=== PATIENT | male | born 1955 | race Caucasian/White ===

== ENCOUNTER 2023-07-29 10:40 | Day surgery (SDC) | payer MEDICARE, OTHER ==
[2023-07-27 15:10] VITALS: BMI 28.1
[~2023-07-29 10:40] MED LIST: LACTATED RINGERS 1,000 ML IV SCH
[2023-07-29] MEDS: LACTATED RINGERS 1,000 ML IV SCH (11:28)
--- NOTE | 2023-07-29 11:34 | CT ---
EXAMINATION TYPE: CT chest wo con DATE OF EXAM: 07/29/2023 COMPARISON: PET/CT on 05/29/2023. HISTORY: Bronchoscopy guidance. CT DLP: 529 mGycm. Automated Exposure Control for Dose Reduction was Utilized. TECHNIQUE: CT scan of the thorax is performed without IV contrast. FINDINGS: Mediastinum and Lillie: There is no axillary, mediastinal or hilar lymphadenopathy. Pleural and Pericardial spaces: There are no pleural or pericardial effusions. Upper Abdomen: There is a 6.1 cm stone within the upper pole of the right kidney. Visualized upper ab domen otherwise appears unremarkable. Cardiovascular: There is moderate vascular calcification throughout the thoracic aorta without eviden ce of aneurysmal dilation. There are severe diffuse coronary artery calcifications. Lung Parenchyma and Airways: 1.2 cm nodular density within the right upper lobe on series 4 image 131 with an additional nodular density more peripherally just adjacent to this region measuring 4.7 cm o n series 4 image 139. 4.9 mm nodule in the left lower lobe on series 4 image 270. 2.9 mm left lower l obe nodule on series 4 image 216. Adjacent nodules within the left lower lobe on series 4 image 228 m easure 4.2 and 4.3 cm in diameter. Bones: No fracture or aggressive osseous lesion. IMPRESSION: 1. Scattered pulmonary nodules as described above. Malignancy should be considered. This study appear s to have been done for bronchoscopy planning. Correlation should be made with biopsy results and fol low-up in 3 months. 2. Nonobstructing right renal stone. 3. No acute findings otherwise seen.
[2023-07-29] MEDS ORDERED: ONDANSETRON 4 MG/2 ML VIAL ONE (11:40)
[2023-07-29] MEDS: ONDANSETRON 4 MG/2 ML VIAL IVP ONE (11:41)
[2023-07-29] MEDS ORDERED: SUCCINYLCHOLINE CHLORIDE 200 MG/10 ML VIAL IV ONE (12:30)
[2023-07-29] MEDS ORDERED: ROCURONIUM 10 MG/ML (5 ML VIAL) IV ONE (12:30)
[2023-07-29] MEDS ORDERED: PROPOFOL 10 MG/ML 20 ML VIAL IV ONE (12:30)
[2023-07-29] MEDS ORDERED: GLYCOPYRROLATE 0.2 MG/ML 2 ML VIAL ONE (12:30)
[2023-07-29] MEDS ORDERED: LIDOCAINE 1% INJ 10MG/ML (20 ML MDV) ONE (12:30)
[2023-07-29] MEDS ORDERED: NEOSTIGMINE 1 MG/ML 10 ML VIAL ONE (12:30)
--- NOTE | 2023-07-29 14:01 | P.PCN ---
Date of Procedure: 07/29/23 Operative Findings: Preoperative Diagnosis: Abnormal Right upper lobe nodule, 1 cm, partially calcified Postoperative Diagnosis: same Procedure(s) Performed: Flexible bronchoscopy Robotic-assisted bronchoscopy and addition to radial ultrasound evaluation of the right upper lobe pulmonary nodule Robotic-assisted transbronchial needle aspirate, transbronchial biopsies, bronchoalveolar lavage of the right upper lobe pulmonary nodule Anesthesia: BORISA Surgeon: Karina Steele Estimated Blood Loss (ml): 0 Pathology: other Condition: stable Disposition: same day Operative Findings: A physical exam was performed. Informed consent was obtained from the patient after explaining all the risks (pneumothorax, life threatening bleeding, infection and adverse effects due to medications), benefits and alternatives to the procedure which the patient appeared to understand and so stated. The patient was connected to the monitoring devices. General anesthesia was induced and the patient was intubated by anesthesia. A final timeout was performed and the procedure confirmed by the attending staff bronchoscopist. The bronchoscope was inserted and the airway examined. The flexible bronchoscope was removed and the robotic bronchoscope was inserted. Registration was completed. I next guided the robotic bronchoscope using the navigation system into the posterior segment of the right upper lob gallatee please check this. Once in proper position, the bronchoscope was frozen. The radial EBUS probe was placed through the bronchoscope and confirmed abnormal u/s images vs normal lung. A needle was placed through the working channel and under fluoroscopic guidance, we sampled the area thought to have the mass twice. We then used a cloud biopsy pattern with ultrasound confirmation for 2 additional passes with the needle. U/S evaluation was then used to reconfirm location. Forceps were next introduced through working channel and extended the appropriate distance and 3 transbronchial biopsies were performed using fluoroscopic guidance. The u/s probe was then reinserted to confirm location. When confirmed this process was repeated for a total of 8-10 transbronchial biopsies. 60ml of saline was then instilled into the area of the lesion. The robotic bronchoscope was removed and the airway inspected with a flexible bronchoscope and 10 ml of effluent from the BAL was collected. The aspirate was bloody and ultimately declotted and based on that, the sample was discarded. Flex. bronchoscope was inserted and regular suctioning was done. At the completion of the procedure, no residual secretions or bloody material within the airway. The bronchoscope was removed. The patient was extubated. FINDINGS: 1.The airways appeared normal 2 Successful navigation, ultrasonographic identification, and biopsies of the right upper lobe pulmonary nodule 3.The the radial ultrasound view was concentric RECOMMENDATIONS: Await pathology and cytology results The referring physician will be alerted to the results when available. The patient was advised to follow up with the referring physician with the biopsy results Patient will be called with results.
[2023-07-29 14:32] VITALS: RESP 16; TEMP 97
--- NOTE | 2023-07-29 15:00 | FL ---
EXAMINATION TYPE: FL bronchoscopy Intraoperative/procedural fluoroscopic services were provided. Tota l fluoroscopy time is 2 minutes 33 seconds with a total of 5 submitted images to PACS. Please see the operative/procedural note for further details. DAP: 6.3367 Gycm2
--- NOTE | 2023-07-29 15:06 | XR ---
EXAMINATION TYPE: XR chest 1V DATE OF EXAM: 07/29/2023 2:28 PM CLINICAL INDICATION:Male, 67 years old with history of post bx; COMPARISON: 07/29/2023 CT. TECHNIQUE: XR chest 1V Frontal view of the chest. FINDINGS: Lungs/Pleura: Right midlung airspace opacity without evidence of pneumothorax. There is no evidence o f pleural effusion, focal consolidation, or left pneumothorax. Pulmonary vascularity: Unremarkable. Heart/mediastinum: Cardiomediastinal silhouette is unremarkable. Musculoskeletal: No acute osseous pathology. Other findings: None IMPRESSION: Right midlung opacity as seen on prior CT, no evidence for pneumothorax.
[2023-07-29 15:35] VITALS: BP 169/78; PULSE 89
== END 2023-07-29 15:32 | disposition home or self-care (01) ==
LOC: ORWHC2ENDO 10:40
PROVIDERS: ATTEND Internal Medicine Critical Care Medicine
DX: R91.1 Solitary pulmonary nodule (principal); K21.9 Gastro-esophageal reflux disease without esophagitis; K92.2 Gastrointestinal hemorrhage, unspecified; E78.5 Hyperlipidemia, unspecified; I10 Essential (primary) hypertension; Z87.891 Personal history of nicotine dependence; Z98.890 Other specified postprocedural states
CPT/HCPCS: 87798 ×3; 87496; 87498; 87529; 88305; 87502; 87634; 87070; 87205; 87116; 87102; 87206; 87635; 71045; 71250; 31628; 31629; 31623; 31624; J0330; J2710; J2405; J2001; J2704; S2900; 88108